=== PATIENT | female | born 1995 | race Caucasian/White ===

== ENCOUNTER → 2016-04-22 | Outpatient (REF) ==
--- NOTE | 2016-04-22 15:58 | Diagnostic Imaging Report ---
EXAMINATION: Three views of the right fingers. INDICATION: Right fifth finger injury. FINDINGS: There is no fracture, dislocation, or radiopaque foreign body. Joint alignment is satisfactory. IMPRESSION: Unremarkable exam. Dictated by: Dictated on workstation # [id number]
== END | disposition home or self-care (01) ==
LOC: OCC 15:35
PROVIDERS: ATTEND Nurse Practitioner Family
CPT/HCPCS: 73140